=== PATIENT | female | born 1940 | race Caucasian/White ===

== ENCOUNTER 2016-08-24 11:14 | Emergency (ER) | payer OTHER ==
--- NOTE | 2016-08-24 11:51 | EDPHY ---
H & P Stated Complaint: dark stoolon blood thinners & L leg swelling Time Seen by Provider: 08/24/16 11:29 HPI/ROS: CHIEF COMPLAINT: Left leg swelling and redness dark stool HISTORY OF PRESENT ILLNESS: The patient is a 76-year-old pleasant female with a very difficult vascular history. 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 3 months ago she was diagnosed with a DVT in her right leg and started on Pradaxa however it progressed over the next week and required interventional Radiology thrombectomy. She continues on Pradaxa now but states that ever since she began and she has had dark stools. She does not feel lightheaded or dizzy. Over the last 3 days she also developed some swelling and warmth in her left leg that is reminiscent of previous cellulitis. She has been afebrile. She spoke with Dr. Chelle Finn's nurse who suggested she come in to be evaluated. She has surgery planned next week in [place] to removed the IVC filter through interventional Radiology. REVIEW OF SYSTEMS: Constitutional: denies: chills, fever, recent illness, recent injury EENTM: denies: blurred vision, double vision, nose congestion Respiratory: denies: cough, shortness of breath Cardiac: denies: chest pain, irregular heart rate, lightheadedness, palpitations Gastrointestinal/Abdominal: See HPI, denies: abdominal pain, diarrhea, nausea, vomiting Genitourinary: denies: dysuria, frequency, hematuria, pain Musculoskeletal: See HPI Skin: denies: lesions, rash, jaundice, bruising Neurological: denies: headache, numbness, paresthesia, tingling, dizziness, weakness Hematologic/Lymphatic: denies: blood clots, easy bleeding, easy bruising Immunologic/allergic: denies: HIV/AIDS, transplant EXAM: GENERAL: Well-appearing, well-nourished and in no acute distress. HEAD: Atraumatic, normocephalic. EYES: Pupils equal round and reactive to light, extraocular movements intact, sclera anicteric, conjunctiva are normal. ENT: TMs normal, nares patent, oropharynx clear without exudates. Moist mucous membranes. NECK: Normal range of motion, supple without lymphadenopathy or JVD. LUNGS: Breath sounds clear to auscultation bilaterally and equal. No wheezes rales or rhonchi. HEART: Regular rate and rhythm without murmurs, rubs or gallops. ABDOMEN: Soft, nontender, normoactive bowel sounds. No guarding, no rebound. No masses appreciated. : Rectal exam performed, brown stool sent to lab, no visible hemorrhoids. BACK: No CVA tenderness, no spinal tenderness, step-offs or deformities EXTREMITIES: Left lower extremity with very minimal erythema and warmth and swelling. tender to palpation, mild edema. NEUROLOGICAL: Cranial nerves II through XII grossly intact. Normal speech, normal gait. 5/5 strength, normal movement in all extremities, normal sensation PSYCH: Normal mood, normal affect. SKIN: Warm, dry, normal turgor, no visible rashes or lesions. Source: Patient, Family, Old records Exam Limitations: No limitations - Personal History Current Tetanus/Diphtheria Vaccine: Yes Current Tetanus Diphtheria and Acellular Pertussis (TDAP): Yes Tetanus Vaccine Date: 2010 - Medical/Surgical History Hx Asthma: No Hx Chronic Respiratory Disease: No Hx Diabetes: No Hx Cardiac Disease: No Hx Renal Disease: No Hx Cirrhosis: No Hx Alcoholism: No Hx HIV/AIDS: No Hx Splenectomy or Spleen Trauma: No Other PMH: ortho/ta/stroke/ANEURYSM/R leg DVT, shunt - Family History Significant Family History: No pertinent family hx - Social History Smoking Status: Former smoker Alcohol Use: None Drug Use: None Constitutional: Initial Vital Signs Temperature (C) 36.5 C 08/24/16 11:18 Heart Rate 77 08/24/16 11:18 Respiratory Rate 16 08/24/16 11:18 Blood Pressure 156/103 H 08/24/16 11:18 O2 Sat (%) 93 08/24/16 11:18 O2 Delivery Mode Room Air Allergies/Adverse Reactions: isovue Allergy (Uncoded 07/03/16 15:30) Home Medications: Medication Instructions Recorded Dabigatran Etexilate Mesyl 150 mg PO BID 06/30/16 [Pradaxa 150 MG (*)] Acetaminophen [Tylenol 325mg (*)] 650 mg PO Q6 07/03/16 Cephalexin [Keflex (*)] 500 mg PO Q6HRS #16 cap 07/07/16 Cephalexin [Keflex] 500 mg PO TID #21 cap 08/24/16 Medical Decision Making - Diagnostics Imaging: Study: Ultrasound of the: Lower extremity Indication: Lower extremity swelling Results: US scan of the lower extremity was obtained. The results of the study are negative for DVT. The study was read by the radiologist, Dr. Silvano Swartz. I viewed the images myself on the PACS system. ED Course/Re-evaluation: 1:20 p.m. we discussed the ultrasound and lab results which are reassuring. The patient's hematocrit is increased from previous draws. Ultrasound reveals no acute DVTs. I will treat her for cellulitis. She states that last time improved at home on Keflex. I will restart this medication. She last used it a month and half ago. She will follow up with Dr. Finn in the next 48 hours. If she develops fevers or symptoms worsen she will return to the emergency department. I did offer her and her admission but they declined. Differential Diagnosis: Partial list of the Differential diagnosis considered include but were not limited to; cellulitis, DVT, GI bleed and although unlikely based on the history and physical exam, I also considered anemia, ischemia, heart failure, renal failure. I discussed these differential diagnoses and the plan with the patient as well as the usual and expected course. The patient understands that the diagnosis is provisional and that in medicine we are not always correct and that further workup is often warranted. Usual and customary warnings were given. All of the patient's questions were answered. The patient was instructed to return to the emergency department should the symptoms at all worsen or return, otherwise to followup with the physician as we discussed. - Data Points Laboratory Results: Laboratory Results 08/24/16 10:45 08/24/16 10:45 Medications Given: Discontinued Medications Cephalexin HCl (Keflex) 500 mg PO EDNOW ONE PRN Reason: Protocol Stop: 08/24/16 13:30 Last Admin: 08/24/16 14:00 Dose: 500 mg Departure - Departure Disposition: Home, Routine, Self-Care Clinical Impression: Cellulitis Qualifiers: Site of cellulitis: extremity Site of cellulitis of extremity: lower extremity Laterality: left Qualified Code(s): L03.116 - Cellulitis of left lower limb Condition: Fair Instructions: Cellulitis (ED) Referrals: Chelle Finn MD [Primary Care Provider] - As per Instructions Prescriptions: Cephalexin [Keflex] 500 mg PO TID #21 cap
[2016-08-24 11:59] LABS: ADD DIFF? NO; ADD MORPH? NO; ADD SCAN? NO; ATYPICAL LYMPHOCYTE FLAG 0 (0-99); FRAGMENT RBC FLAG 0 (0-99); HEMATOCRIT 35.3 % (38.0-47.0); HEMOGLOBIN 12.2 g/dL (12.6-16.3); LEFT SHIFT FLG 0 (0-99); LIPEMIA HEMOLYSIS FLAG 90 (0-99); MEAN CELL HEMOGLOBIN 34.4 pg (27.9-34.1); MEAN CELL HEMOGLOBIN CONCENTR. 34.6 g/dL (32.4-36.7); MEAN CELL VOLUME 99.4 fL (81.5-99.8); MEAN PLATELET VOLUME 9.7 fL (8.7-11.7); PLATELET CLUMPS FLAG 0 (0-99); PLATELET COUNT 341 10^3/uL (150-400); RED BLOOD CELL COUNT 3.55 10^6/uL (4.18-5.33); RED CELL DISTRIBUTION WIDTH 13.6 % (11.5-15.2)
[2016-08-24 12:11] LABS: INR 1.32 (0.83-1.16); PROTIME(PATIENT) 16.4 SEC (12.0-15.0)
[2016-08-24 12:12] LABS: APTT 69.4 SEC (23.0-38.0)
[2016-08-24 12:21] LABS: ANION GAP 9 mEq/L (8-16); CALCIUM 9.5 mg/dL (8.5-10.4); CARBON DIOXIDE 25 mEq/l (22-31); CHLORIDE 106 mEq/L (97-110); CREATININE 0.7 mg/dL (0.6-1.0); GLOMERULAR FILTRATION RATE > 60; GLUCOSE 99 mg/dL (70-100); POTASSIUM 4.4 mEq/L (3.5-5.2); SODIUM 140 mEq/L (134-144)
[2016-08-24] MEDS ORDERED: CEPHALEXIN 500 MG CAP PO ONE (13:29)
[2016-08-24 14:03] VITALS: BP 139/65; PULSE 81; RESP 20; TEMP 98.6; O2SAT 95
== END 2016-08-24 14:03 | disposition home or self-care (01) ==
DX: L03.116 Cellulitis of left lower limb (principal); Z87.891 Personal history of nicotine dependence

== ENCOUNTER → 2016-10-26 | Outpatient (CLI) | payer OTHER | LOC: FIMAGING 14:33 | DX: Z86.718 Personal history of other venous thrombosis and embolism (principal) ==

== ENCOUNTER → 2017-01-03 | Outpatient (CLI) | payer OTHER | LOC: BMCIMAGING 16:01 | PROVIDERS: ATTEND Podiatrist Foot & Ankle Surgery | DX: M25.572 Pain in left ankle and joints of left foot (principal); M79.89 Other specified soft tissue disorders ==

== ENCOUNTER → 2017-01-16 | Outpatient (CLI) | payer OTHER ==
[~2017-01-16] MED LIST: IOPAMIDOL (ISOVUE-300) 100 ML BTL ONE
[2017-01-16 14:48] LABS: CREATININE 0.9 mg/dL (0.6-1.0); GLOMERULAR FILTRATION RATE > 60
== END ==
LOC: CIMAGING 13:57
PROVIDERS: ATTEND Podiatrist Foot & Ankle Surgery
DX: M79.89 Other specified soft tissue disorders (principal)
CPT/HCPCS: 73701; Q9967

== ENCOUNTER → 2017-02-27 | Outpatient (CLI) | payer OTHER | LOC: BMCIMAGING 16:42 | PROVIDERS: ATTEND Internal Medicine | DX: J44.9 Chronic obstructive pulmonary disease, unspecified (principal); Q25.46 Tortuous aortic arch | CPT/HCPCS: 84481-90 ==

== ENCOUNTER 2017-03-13 09:14 | Day surgery (SDC) | payer OTHER ==
[2017-03-13] MEDS ORDERED: ceFAZolin 2 GM/DEXTROSE 100 ML IV ONE (09:29)
[2017-03-13] MEDS ORDERED: LIDOCAINE 1% 2 ML INJ ONE (09:33)
[2017-03-13] MEDS ORDERED: LR 1,000 ML IV ONE (09:35)
[2017-03-13] MEDS ORDERED: LIDOCAINE 1% 2 ML INJ ID PRN (09:35)
[2017-03-13] MEDS ORDERED: BUPIVACAINE 0.5% 30 ML SDV ONE (09:49)
[2017-03-13] MEDS ORDERED: BACITRACIN 50,000 UNITS/10 ML SYR IRR ONE (09:49)
[2017-03-13] MEDS ORDERED: POLYMYXIN B SULFATE 500,000 UNIT/10 ML SYR IRR ONE (09:49)
--- NOTE | 2017-03-13 09:59 | PDANEPAE ---
ANE History of Present Illness Infection ankle ANE Past Medical History - Cardiovascular History Hx Hypertension: Yes Hx Arrhythmias: No Hx Chest Pain: No Hx Coronary Artery / Peripheral Vascular Disease: No Hx CHF / Valvular Disease: No Hx Palpitations: No Cardiovascular History Comment: Beet med for HTN - Pulmonary History Hx COPD: No Hx Asthma/Reactive Airway Disease: No Hx Recent Upper Respiratory Infection: No Hx Oxygen in Use at Home: No Hx Sleep Apnea: Yes Sleep Apnea Screening Result - Last Documented: Positive Pulmonary History Comment: Dx w/SHRUTHI unable to tolerate CPAP. 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 - Chronic Pain History Chronic Pain: No - Surgical History Prior Surgeries: ankle repair ORIF. 2004 ANERUYSM REPAIR, AV SHUNT 2204. R SHOULDER REPAIR 2007, 2010 LINDA JOYCE Review of Systems - Exercise capacity METS (RN): 4 METS ANE Patient History - Allergies Allergies/Adverse Reactions: No Known Allergies Allergy (Unverified 03/08/17 12:45) - Home Medications Home medications: home medication list seen and reviewed Home Medications: Dabigatran Etexilate Mesyl [Pradaxa 150 MG (*)] 150 mg PO BID 06/30/16 [Last Taken 07/03/16 09:00] Acetaminophen [Tylenol 325mg (*)] 650 mg PO Q6 07/03/16 [Last Taken 07/03/16 14: 30] - NPO status NPO Since - Liquids (Date): 03/13/17 NPO Since - Liquids (Time): 07:00 NPO Since - Solids (Date): 03/12/17 NPO Since - Solids (Time): 19:00 - Smoking Hx Smoking Status: Former smoker ANE Labs/Vital Signs - Vital Signs Blood Pressure: 147/90 Heart Rate: 77 Respiratory Rate: 16 O2 Sat (%): 93 Height: 165.1 cm Weight: 84.822 kg ANE Physical Exam - Airway Neck exam: FROM Mallampati Score: Class 2 Mouth exam: normal dental/mouth exam - Pulmonary Pulmonary: no respiratory distress - Cardiovascular Cardiovascular: regular rate and rhythym - ASA Status ASA Status: III ANE Anesthesia Plan Anesthesia Plan: MAC
[2017-03-13] MEDS ORDERED: LIDOCAINE 2% 5 ML SDV ONE (10:21)
[2017-03-13] MEDS ORDERED: fentaNYL 100 MCG/2 ML INJ ONE (10:21)
[2017-03-13] MEDS ORDERED: PROPOFOL/EMULSION 500 MG/50 ML BOTTLE IV ONE (10:21)
--- NOTE | 2017-03-13 10:32 | PDHPUP ---
History & Physical Update H&P update statement: This history and physical update is based on an assessment of the patient which was completed after admission or registration (within 24 hours), but prior to the surgery/procedure. H&P update: H&P reviewed & patient examined, no change in patient's condition since H&P completed
[2017-03-13] MEDS ORDERED: fentaNYL 100 MCG/2 ML INJ IVP PRN (11:07)
[2017-03-13] MEDS ORDERED: NALOXONE HCL 0.4 MG/ML INJ IVP PRN (11:07)
[2017-03-13] MEDS ORDERED: OXYCODONE/APAP 5/325 TAB PO PRN (11:18)
[2017-03-13] MEDS ORDERED: ONDANSETRON 4 MG/2 ML VIAL IVP PRN (11:18)
[2017-03-13] MEDS ORDERED: ONDANSETRON DISINTEGRATING 4 MG TAB PO PRN (11:18)
--- NOTE | 2017-03-13 11:21 | POSTANESTH ---
Post Anesthetic Evaluation Cardiovascular Status: Normal, Stable Respiratory Status: Normal, Stable Level of Consciousness/Mental Status: Can Participate in Eval Pain Control: Adequate, Prn Tx Ordered Nausea/Vomiting Control: Adequate, Prn Tx Ordered Complications Possibly Related to Anesthesia: None Noted
[2017-03-13 12:21] VITALS: TEMP 98.8
[2017-03-13 12:26] VITALS: BP 143/79
--- NOTE | 2017-03-13 12:27 | GOP ---
[f rep st] OPERATIVE REPORT DATE OF OPERATION: 03/13/2017 SURGEON: Juanito Penn DPM RADIOACTIVE WASTE DISPOSAL DISPATCHER: None. ANESTHESIA: Local, with monitored anesthesia care. PREOPERATIVE DIAGNOSIS: Nonhealing wound of the left ankle. POSTOPERATIVE DIAGNOSIS: Nonhealing wound of the left ankle. PROCEDURE PERFORMED: 1. Debridement of chronic ulceration with application of a biologic wound dressing, left ankle. 2. Biopsy of tissue, left ankle. FINDINGS: SPECIMENS: Culture swab, as well as soft tissue biopsies, sent as permanent. ESTIMATED BLOOD LOSS: Scant. INDICATIONS: The patient has had a chronic nonhealing wound for multiple months to her anterior lat eral left ankle. The patient has been through multiple weeks of wound care. The patient understand s the risks, benefits, and alternatives to the proposed procedure and wishes to proceed. DESCRIPTION OF PROCEDURE: Under mild sedation, the patient was brought into the operating room and placed on the operating table in the supine position. Following further IV sedation, local anesthes ia was infiltrated, surrounding the wound in a regional block, consisting of 20 cc of 0.5% Marcaine plain. The wound was then scrubbed, prepped, and draped in the usual aseptic manner. Attention was then directed to the already-present ulceration where the wound edges were excised and passed from the operative field. The wound was curettaged, as well as sharply debrided. A fibrous base was noted to the wound. Culture swabs were taken and sent for aerobic, anaerobic, acid-fast. Soft tissue specimens were sent for pathologic review to assess for any vasculitis or any other mal ignant dermatologic issues. At this time, an EpiFix amniotic tissue membrane was then placed on the wound and was well adhered. A sterile compressive dressing, consisting of Adaptic, sterile 4x4s an d a sterile Bradley, was then placed. A Coban wrap was also lightly placed. The patient tolerated the procedure and anesthesia well. She was transferred to the recovery room w ith vital signs stable. Vascular status intact to all digits of the left foot. The patient will be discharged home on the following written and oral postoperative instructions. 1. Keep dressing clean, dry, and intact until first postoperative visit in 3 days. 2. Elevate as instructed. 3. Use ibuprofen as directed for any postoperative pain. 4. Any followup questions or concerns should be directed toward [facility] at [phone]. HEMOSTASIS: None. MATERIALS: EpiFix from [employer], 2 x 3 cm. INJECTABLES: 20 cc of 0.5% Marcaine plain. COMPLICATIONS: None. /[id number]/MODL
[2017-03-13 12:48] VITALS: PULSE 69; RESP 18; O2SAT 95
== END 2017-03-13 12:48 | disposition home or self-care (01) ==
LOC: FSGY 09:14
PROVIDERS: ATTEND Podiatrist Foot & Ankle Surgery
DX: L97.321 Non-pressure chronic ulcer of left ankle limited to breakdown of skin (principal)
CPT/HCPCS: 11100; 15271; Q4131; J0690; J2704; J3010

== ENCOUNTER → 2018-06-19 | Outpatient (CLI) | payer OTHER ==
[~2018-06-19] MED LIST changes: -IOPAMIDOL (ISOVUE-300) 100 ML BTL ONE; +IOPAMIDOL (ISOVUE-370) 150 ML BTL IV ONE
== END ==
LOC: FIMAGING 15:42
PROVIDERS: ATTEND Surgery
DX: I70.248 Atherosclerosis of native arteries of left leg with ulceration of other part of lower leg (principal); I70.0 Atherosclerosis of aorta; I86.2 Pelvic varices
CPT/HCPCS: 74177; Q9967; 82565-PO